=== PATIENT | male | born 1965 | race Caucasian/White ===

== ENCOUNTER → 2019-07-29 | Emergency (ER) | payer MEDICARE, OTHER ==
[~2019-07-29] VITALS: Ht 170.2 cm; Wt 72.6 kg
[~2019-07-29] MED LIST: IBUPROFEN400 MG ORAL; VOLTAREN100 G1 TP
[2019-07-29 16:24] VITALS: BP 147/96
--- NOTE | 2019-07-29 17:10 | Emergency Room Report ---
History of Present Illness General Chief Complaint: Pain Source: Caregiver Present Illness HPI 54-year-old male history of schizophrenia currently controlled here with his caregiver complaining of left knee pain x3 days. Denies any fall or injury. Has full range of motion. Denies any pain radiation, tingling and numbness. No calf tenderness is noted. Rates the pain 3 out of 10 when walking. Has not taken any pain medication. Denies chest pain, shortness of breath, palpitation , and other associated symptoms. Allergies: Coded Allergies: No Known Allergies (Unverified , 07/29/19) Patient History Past Medical History: see triage record Past Surgical History: unable to obtain Pertinent Family History: none Reviewed Nursing Documentation: PMH: Agreed; PSxH: Agreed Nursing Documentation-PMH Past Medical History: No History, Except For Hx Cardiac Problems: No - Schizophrenia Review of Systems All Other Systems: negative except mentioned in HPI Physical Exam Vital Signs Date Time Temp Pulse Resp B/P (MAP) Pulse Ox O2 Delivery O2 Flow Rate FiO2 07/29/19 16:24 98.1 74 17 147/96 (113) 99 Room Air Sp02 EP Interpretation: reviewed, normal General Appearance: no apparent distress, alert, GCS 15, non-toxic Head: normocephalic, atraumatic Eyes: bilateral eye normal inspection, bilateral eye PERRL ENT: hearing grossly normal, normal pharynx, no angioedema, normal voice Neck: full range of motion, supple, thyroid normal, no meningismus, supple/symm /no masses Respiratory: chest non-tender, lungs clear, normal breath sounds, no respiratory distress, no retraction, no wheezing, speaking full sentences Cardiovascular #1: regular rate, rhythm, no edema, no murmur, normal capillary refill Cardiovascular #2: 2+ dorsalis pedis (R), 2+ dorsalis pedis (L) Gastrointestinal: normal bowel sounds, non tender, soft, non-distended, no guarding, no rebound Rectal: deferred Genitourinary: no CVA tenderness Musculoskeletal: back normal, normal range of motion, digits/nails normal, no calf tenderness Neurologic: alert, motor strength/tone normal, oriented x3, sensory intact, responsive, speech normal Psychiatric: judgement/insight normal, memory normal, mood/affect normal, no suicidal/homicidal ideation Skin: no rash Lymphatic: no adenopathy Medical Decision Making PA Attestation All my diagnosis and treatment plans were reviewed ad discussed with my supervising physician Dr. Hall Diagnostic Impression: Primary Impression: Arthritis of knee ER Course 54-year-old male history of schizophrenia currently controlled here with his caregiver complaining of left knee pain x3 days. Denies any fall or injury. Has full range of motion. Denies any pain radiation, tingling and numbness. No calf tenderness is noted. Rates the pain 3 out of 10 when walking. Has not taken any pain medication. Denies chest pain, shortness of breath, palpitation , and other associated symptoms. Ddx considered but are not limited to: Knee sprain, strain, fracture, contusion , meniscus tear injury Vital signs: are WNL, pt. is afebrile H&PE are most consistent with: Left knee arthritis ORDERS: Knee x-ray, Motrin, Voltaren gel ER intervention: none DISCHARGE: At this time pt. is stable for d/c to home. Will provide printed patient care instructions, and any necessary prescriptions. Care plan and follow up instructions have been discussed with the patient prior to discharge. Take medication as directed, follow-up with your primary care provider, worsening symptoms return to emergency room Other X-Ray Diagnostic Results Other X-Ray Diagnostic Results : X-Ray ordered: knee Xray # of Views/Limited Vs Complete: 3 View Indication: Pain EP Interpretation: Yes PA Xray: Interpretation reviewed, by supervising MD, and agrees with findings. Interpretation: no dislocation, no soft tissue swelling, no fractures Impression: No acute disease Electronically Signed by: Calli Kulkarni PA-C Last Vital Signs Date Time Temp Pulse Resp B/P (MAP) Pulse Ox O2 Delivery O2 Flow Rate FiO2 07/29/19 16:24 98.1 74 17 147/96 (113) 99 Room Air Disposition: HOME, SELF-CARE Condition: Stable Scripts Ibuprofen* (MOTRIN*) 400 Mg Tablet 400 MG ORAL Q8H, #30 TAB 0 Refills Prov: Calli Mccabe 07/29/19 Diclofenac Sodium (VOLTAREN) 100 Gm Gel..gram. 2 GM TP TID, #100 GM Prov: Calli Mccabe 07/29/19 Patient Instructions: Arthritis, [id number] Calli Mccabe Jul 29, 2019 17:10
--- NOTE | 2019-07-29 17:11 | Diagnostic Imaging Report ---
. Indication: Pain Technique: 3 views of the left knee Comparison: None Findings: No suprapatellar effusion. No acute fractures. No dislocations. Joint spaces are preserved Impression: Negative
== END | disposition home or self-care (01) ==
LOC: EMR 17:27
DX: M25.562 Pain in left knee (principal); M17.12 Unilateral primary osteoarthritis, left knee
CPT/HCPCS: 99283

== ENCOUNTER 2019-09-27 17:18 | Emergency (ER) | payer MEDICARE, OTHER ==
[~2019-09-27] VITALS: Ht 175.3 cm; Wt 74.8 kg
[2019-09-27 17:55] VITALS: BP 130/70
--- NOTE | 2019-09-27 17:55 | NUR ---
ED Nurse Note: Pt ambulated to ED with c/o runny nose. Pt is from boarding care, pt denies any chills, bodyache, VSS, afebrile on triage.
--- NOTE | 2019-09-27 18:09 | Emergency Room Report ---
History of Present Illness General Chief Complaint: Flu Like Symptoms Source: Medical Record Present Illness HPI 54-year-old male with history of schizophrenia currently in boarding care here complaining of 1 day of runny nose. Denies any cough or congestion or fever. Appears to be afebrile with no other symptoms. Denies any recent travel, coming out of the left travel. Sitting comfortably with stable vital signs. Denies chest pain, shortness of breath, palpitation, headache and dizziness. Denies abdominal pain, nausea vomiting, generalized body ache. COVID-19 risk:Travel to affect: No Has patient experienced donovan: No Allergies: Coded Allergies: No Known Allergies (Unverified , 07/29/19) Patient History Past Medical History: see triage record Past Surgical History: none Pertinent Family History: none Immunizations: UTD Reviewed Nursing Documentation: PMH: Agreed; PSxH: Agreed Nursing Documentation-PMH Hx Cardiac Problems: No - Schizophrenia Review of Systems All Other Systems: negative except mentioned in HPI Physical Exam Vital Signs Date Time Temp Pulse Resp B/P (MAP) Pulse Ox O2 Delivery O2 Flow Rate FiO2 09/27/19 17:47 98.2 78 18 130/70 (90) 98 Room Air Sp02 EP Interpretation: reviewed, normal General Appearance: no apparent distress, alert, GCS 15, non-toxic Head: normocephalic, atraumatic Eyes: bilateral eye normal inspection, bilateral eye PERRL ENT: hearing grossly normal, normal pharynx, no angioedema, normal voice Neck: full range of motion, supple/symm/no masses Respiratory: chest non-tender, lungs clear, normal breath sounds, no rhonchi, no respiratory distress, no retraction, speaking full sentences Cardiovascular #1: regular rate, rhythm, no edema Gastrointestinal: normal bowel sounds, non tender, soft, non-distended, no guarding, no rebound Genitourinary: no CVA tenderness Musculoskeletal: back normal Neurologic: alert, motor strength/tone normal, oriented x3, sensory intact, responsive, speech normal Psychiatric: judgement/insight normal, memory normal, mood/affect normal, no suicidal/homicidal ideation Skin: no rash Lymphatic: no adenopathy Medical Decision Making PA Attestation All my diagnosis and treatment plans were reviewed ad discussed with my supervising physician Dr. Hall Diagnostic Impression: Primary Impression: Upper respiratory infection ER Course 54-year-old male with history of schizophrenia currently in boarding care here complaining of 1 day of runny nose. Denies any cough or congestion or fever. Appears to be afebrile with no other symptoms. Denies any recent travel, coming out of the left travel. Sitting comfortably with stable vital signs. Denies chest pain, shortness of breath, palpitation, headache and dizziness. Denies abdominal pain, nausea vomiting, generalized body ache. Ddx considered but are not limited to: Covid 19 , strep pharyngitis, URI, tonsillitis, peritonsillar abscess, influneza Vital signs: are WNL, pt. is afebrile H&PE are most consistent with: URI ORDERS: Claritin-D ED INTERVENTIONS: None required at this time. DISCHARGE: At this time pt. is stable for d/c to home. Will provide printed patient care instructions, and any necessary prescriptions. Care plan and follow up instructions have been discussed with the patient prior to discharge. Patient take medication as directed, self quarantine for 14 days, follow-up primary care provider, emergency room Last Vital Signs Date Time Temp Pulse Resp B/P (MAP) Pulse Ox O2 Delivery O2 Flow Rate FiO2 09/27/19 17:55 78 18 Room Air 09/27/19 17:55 98.2 130/70 98 Disposition: HOME, SELF-CARE Condition: Stable Scripts Loratadine/Pseudoephedrine (CLARITIN-D 12 HOUR TABLET) 1 Each Tab.er.12h 1 TAB ORAL EVERY 12 HOURS for 10 Days, #20 TAB Prov: Calli Mccabe 09/27/19 Patient Instructions: Upper Respiratory Infection, Adult, [id number] Additional Instructions: Take medication as directed, follow-up with your primary doctor, you need to stay home for self quarantine due to Covid 19 precautions for 14 days Calli Mccabe Sep 27, 2019 18:09
[2019-09-27] MEDS ORDERED: CLARITIN-D 121 EAC1 ORAL (18:10)
--- NOTE | 2019-09-27 18:15 | NUR ---
ER DISCHARGE NOTE: Pt is cleared to be discharged per ERPA, pt is aox3, on room air, with stable vital signs. pt was given dc and prescription instructions, pt was able to verbalize understanding, pt id band removed. pt is able to ambulate with steady gait. pt took all belongings.
== END 2019-09-27 18:20 | disposition home or self-care (01) ==
LOC: EMR 18:20
DX: J06.9 Acute upper respiratory infection, unspecified (principal); F20.9 Schizophrenia, unspecified
CPT/HCPCS: 99281